=== PATIENT | male | born 1945 | race Caucasian/White ===

== ENCOUNTER 2018-02-10 16:34 | Inpatient (IN) ==
[2018-02-10] MEDS ORDERED: SODIUM CHLORIDE 0.9% 500 ML IV STA (17:03)
[2018-02-10] MEDS ORDERED: methylPREDNISolone SOD SUC 125 MG/2 ML VIAL IV STA (17:05)
[2018-02-10] MEDS ORDERED: ALBUTEROL NEB SOLN 5 MG/ML 20 ML/BOTTLE RESP TX SCH (17:30)
[2018-02-10 17:45] LABS: ABG Base Excess 21.3 MMOL/L (-2.5-2.5); ABG HCO3 45.9 MMOL/L (20-26); ABG Oxygen Saturation 99.7 % (95-100); ABG TCO2 53.1 MMOL/L (23-27)
[2018-02-10 17:50] LABS: ABG PH 7.161 (7.35-7.45)
[2018-02-10] MEDS ORDERED: cefTRIAXone 1,000 MG in SODIUM CHLORIDE 0.9% 100 ML IV STA (17:52)
[2018-02-10 18:42] LABS: Basophils # 0.1 10*3/uL (0.0-0.2); Basophils % 0.6 % (0.0-0.8); Eosinophils % 0.4 % (0.00-10.9); Hematocrit 33.4 VOL% (42.0-52.0); Immature Granulocytes % 0.2 %; Immature Granulocytes Absolute 0.02 #; Lymphocytes # 1.4 10*3/uL (1.4-4.0); Lymphocytes % 16.7 % (21.2-54.2); Mean Corpuscular Hemoglobin 31 PG (27-34); Mean Corpuscular Volume 108.1 FL (87-102); Mean Platelet Volume 10.4 FL (9.6-12.0); Monocytes # 0.4 10*3/uL (0.11-0.8); Monocytes % 5.3 % (1.7-12.7); Neutrophils # 6.4 10*3/uL (1.4-7.4); Neutrophils % 76.8 % (38.7-73.9); Platelet Count 204 T/CUMM (130-400); Red Blood Count 3.09 MC/CUMM (3.8-5.5); Red Cell Distribution Width 14.4 % (9.3-17.3); White Blood Count 8.3 T/CUMM (4-12)
[2018-02-10 18:44] LABS: PT Patient Result 10.1 SECS
[2018-02-10 18:57] LABS: Apearance,Urine CLEAR (Clear); Bacteria,Urine Occasional /HPF (Few); Bilirubin,Urine Negative (Negative); Blood, Urine Negative (Negative); Glucose,Urine (UA) Negative (Negative); Ketones,Urine Negative (Negative); Mucus,Urine Occasional /LPF (Occasional); Nitrite,Urine Negative (Negative); Protein,Urine Negative; RBC,Urine 3 /HPF (0-4); Urine Color Yellow (Yellow); Urine Urobilinogen < 2.0 EU/DL (0.2-1.0); WBC,Urine 17 /HPF (0-6)
[2018-02-10 19:00] LABS: Barbiturates Screen,Urine Negative (Negative); Benzodiazepines Screen,Urine Negative (Negative); Cannabinoid Screen,Urine Negative (Negative); Opiate Screen,Urine Negative (Negative); Phencyclidine Screen,Urine Negative (Negative)
[2018-02-10 19:00] LABS: Ammonia 58 UMOL/L (11-32)
[2018-02-10 19:22] LABS: Hemoglobin 9.7 GM/DL (14.0-18.0)
[2018-02-10 19:24] LABS: Alanine Aminotransferase 18 U/L (16-61); Albumin 2.9 G/DL (3.4-5.0); Alkaline Phosphatase 70 U/L (45-117); Aspartate Amino Transferase 15 U/L (0-37); Blood Urea Nitrogen 16 MG/DL (7-18); Calcium 9.1 MG/DL (8.5-10.1); Glucose 95 MG/DL (74-106); Osmolality,Calculated 283.1 MOS/KG (273-304); Potassium 3.6 MMOL/L (3.5-5.1); Sodium 142 MMOL/L (136-145); Thyroid Stimulating Hormone 0.311 uIU/ml (0.358-3.74); Total Protein 6.4 G/DL (6.4-8.3); Troponin I < 0.015 NG/ML (0.00-0.045)
[2018-02-10] MEDS ORDERED: ACETAMINOPHEN 325 MG TABLET PO PRN (20:24)
[2018-02-10] MEDS ORDERED: ALBUTEROL 2.5 MG/3 ML NEB RESP TX PRN (20:24)
[2018-02-10] MEDS ORDERED: ONDANSETRON 4 MG/2 ML VIAL IV PRN (20:24)
[2018-02-10] MEDS ORDERED: VANCOMYCIN INJ 500 MG in SODIUM CHLORIDE 0.9% 250 ML IV SCH (21:00)
[2018-02-10 21:21] LABS: Anisocytosis 1+; Hypochromasia 1+
[2018-02-10 21:23] LABS: Stomatocytes Few
[2018-02-10 21:24] LABS: Basophilic Stippling Few
[2018-02-10] MEDS: PANTOPRAZOLE 40 MG VIAL IV SCH (22:24)
[2018-02-10] MEDS: LEVOFLOXACIN INJ 750 MG in PREMIX 1 EACH IV SCH (23:23)
[2018-02-10] MEDS: PIPERACILLIN/TAZOBACTAM 3,375 MG in SODIUM CHLORIDE 0.9% 100 ML IV SCH (23:24)
[2018-02-11] MEDS: VANCOMYCIN INJ 500 MG in SODIUM CHLORIDE 0.9% 100 ML IV SCH ×3 (00:11→23:45)
[2018-02-11] MEDS: ALBUTEROL/IPRATROPIUM 3 ML NEB RESP TX SCH ×4 (02:27→19:50)
[2018-02-11] MEDS: methylPREDNISolone SOD SUC 40 MG/1 ML VIAL IV SCH ×4 (02:44→21:06)
[2018-02-11 04:15] LABS: Basophils % 0.1 % (0.0-0.8); Hematocrit 31.1 VOL% (42.0-52.0); Hemoglobin 9.1 GM/DL (14.0-18.0); Immature Granulocytes % 0.7 %; Immature Granulocytes Absolute 0.06 #; Lymphocytes # 0.3 10*3/uL (1.4-4.0); Lymphocytes % 3.6 % (21.2-54.2); Mean Corpuscular HGB Conc 29.3 GM/DL (32-36); Mean Corpuscular Hemoglobin 31 PG (27-34); Mean Corpuscular Volume 106.5 FL (87-102); Mean Platelet Volume 10.7 FL (9.6-12.0); Monocytes # 0.2 10*3/uL (0.11-0.8); Monocytes % 1.8 % (1.7-12.7); Neutrophils % 93.8 % (38.7-73.9); Platelet Count 178 T/CUMM (130-400); Red Blood Count 2.92 MC/CUMM (3.8-5.5); Red Cell Distribution Width 14.2 % (9.3-17.3); White Blood Count 8.5 T/CUMM (4-12)
[2018-02-11 04:32] LABS: ABG Base Excess 19.4 MMOL/L (-2.5-2.5); ABG HCO3 43.7 MMOL/L (20-26); ABG PCO2 98.6 MM HG (35-48); ABG PH 7.313 (7.35-7.45); ABG PO2 85.1 MM HG (80-95); ABG TCO2 46.4 MMOL/L (23-27); Allen Test Positive
[2018-02-11 04:49] LABS: Hypochromasia 1+; Lymphocytes 4 % (20-55); Segmented Neutrophils 95 % (50-85); Stomatocytes Slight; Total Cells Counted 100
[2018-02-11 04:50] LABS: Macrocytosis Slight; Platelet Estimate Adequate
[2018-02-11 04:59] LABS: Ammonia < 10 UMOL/L (11-32)
[2018-02-11] MEDS: PIPERACILLIN/TAZOBACTAM 3,375 MG in SODIUM CHLORIDE 0.9% 100 ML IV SCH ×3 (06:23→21:32)
[2018-02-11 06:33] LABS: Blood Urea Nitrogen 20 MG/DL (7-18); Calcium 8.7 MG/DL (8.5-10.1); Glucose 119 MG/DL (74-106); Potassium 4.1 MMOL/L (3.5-5.1); Sodium 143 MMOL/L (136-145)
[2018-02-11] MEDS: THEOPHYLLINE ER (24 HR) 400 MG TABLET PO SCH (08:56)
[2018-02-11] MEDS: ASPIRIN EC 81 MG TABLET PO SCH (08:56)
[2018-02-11] MEDS: MAGNESIUM CHLORIDE 64 MG TABLET PO SCH (08:56)
[2018-02-11] MEDS: ENOXAPARIN 40 MG/0.4 ML SYRINGE SUBCUT SCH (09:08)
[2018-02-11] MEDS: PANTOPRAZOLE 40 MG VIAL IV SCH (21:06)
[2018-02-11] MEDS: LEVOFLOXACIN INJ 750 MG in PREMIX 1 EACH IV SCH (21:32)
[2018-02-12] MEDS: ALBUTEROL/IPRATROPIUM 3 ML NEB RESP TX SCH ×4 (01:00→19:40)
[2018-02-12] MEDS: methylPREDNISolone SOD SUC 40 MG/1 ML VIAL IV SCH ×4 (03:15→19:00)
[2018-02-12 04:10] LABS: ABG Base Excess 23.2 MMOL/L (-2.5-2.5); ABG HCO3 51.4 MMOL/L (20-26); ABG Oxygen Saturation 96.9 % (95-100); ABG PH 7.408 (7.35-7.45); ABG PO2 96.8 MM HG (80-95)
[2018-02-12 04:11] LABS: ABG PCO2 83.4 MM HG (35-48)
[2018-02-12 04:55] LABS: Basophils % 0.2 % (0.0-0.8); Hemoglobin 8.5 GM/DL (14.0-18.0); Immature Granulocytes % 0.6 %; Immature Granulocytes Absolute 0.06 #; Lymphocytes # 0.7 10*3/uL (1.4-4.0); Lymphocytes % 7.2 % (21.2-54.2); Mean Corpuscular HGB Conc 29.3 GM/DL (32-36); Mean Corpuscular Hemoglobin 31 PG (27-34); Mean Corpuscular Volume 104.3 FL (87-102); Mean Platelet Volume 10.8 FL (9.6-12.0); Monocytes # 0.4 10*3/uL (0.11-0.8); Monocytes % 3.9 % (1.7-12.7); Neutrophils # 8.3 10*3/uL (1.4-7.4); Neutrophils % 88.1 % (38.7-73.9); Platelet Count 202 T/CUMM (130-400); Red Blood Count 2.78 MC/CUMM (3.8-5.5); Red Cell Distribution Width 14.7 % (9.3-17.3); White Blood Count 9.4 T/CUMM (4-12)
[2018-02-12] MEDS: PIPERACILLIN/TAZOBACTAM 3,375 MG in SODIUM CHLORIDE 0.9% 100 ML IV SCH ×3 (05:44→23:34)
[2018-02-12 06:14] LABS: Blood Urea Nitrogen 21 MG/DL (7-18); Calcium 9.2 MG/DL (8.5-10.1); Glucose 109 MG/DL (74-106); Osmolality,Calculated 289.8 MOS/KG (273-304); Sodium 144 MMOL/L (136-145)
[2018-02-12] MEDS: DEXTROSE 5% NACL 0.45% 1,000 ML IV SCH (09:20)
[2018-02-12] MEDS: ENOXAPARIN 40 MG/0.4 ML SYRINGE SUBCUT SCH (10:43)
[2018-02-12] MEDS: ASPIRIN EC 81 MG TABLET PO SCH (10:44)
[2018-02-12] MEDS: THEOPHYLLINE ER (24 HR) 400 MG TABLET PO SCH (10:44)
[2018-02-12] MEDS: MAGNESIUM CHLORIDE 64 MG TABLET PO SCH (10:44)
[2018-02-12] MEDS: fentaNYL 25 MCG/HR PATCH TRANSDERM SCH (11:30)
[2018-02-12] MEDS: VANCOMYCIN INJ 500 MG in SODIUM CHLORIDE 0.9% 100 ML IV SCH ×2 (12:15→19:56)
[2018-02-12] MEDS: PANTOPRAZOLE 40 MG VIAL IV SCH (19:53)
[2018-02-12] MEDS: LEVOFLOXACIN INJ 750 MG in PREMIX 1 EACH IV SCH (21:30)
[2018-02-13] MEDS: ALBUTEROL/IPRATROPIUM 3 ML NEB RESP TX SCH ×4 (01:30→19:59)
[2018-02-13] MEDS: methylPREDNISolone SOD SUC 40 MG/1 ML VIAL IV SCH ×3 (03:15→21:45)
[2018-02-13] MEDS: VANCOMYCIN INJ 500 MG in SODIUM CHLORIDE 0.9% 100 ML IV SCH ×3 (03:26→21:50)
[2018-02-13] MEDS: DEXTROSE 5% NACL 0.45% 1,000 ML IV SCH ×2 (05:28)
[2018-02-13] MEDS: PIPERACILLIN/TAZOBACTAM 3,375 MG in SODIUM CHLORIDE 0.9% 100 ML IV SCH ×2 (06:11→14:31)
[2018-02-13] MEDS: MAGNESIUM CHLORIDE 64 MG TABLET PO SCH (08:43)
[2018-02-13] MEDS: THEOPHYLLINE ER (24 HR) 400 MG TABLET PO SCH (08:45)
[2018-02-13] MEDS: ASPIRIN EC 81 MG TABLET PO SCH (08:45)
[2018-02-13] MEDS: ENOXAPARIN 40 MG/0.4 ML SYRINGE SUBCUT SCH (08:46)
[2018-02-13] MEDS: fentaNYL 25 MCG/HR PATCH TRANSDERM SCH (10:40)
[2018-02-13] MEDS: PANTOPRAZOLE 40 MG VIAL IV SCH (21:46)
[2018-02-13] MEDS: LEVOFLOXACIN INJ 750 MG in PREMIX 1 EACH IV SCH (23:16)
[2018-02-14] MEDS: ALBUTEROL/IPRATROPIUM 3 ML NEB RESP TX SCH ×4 (01:15→19:06)
[2018-02-14] MEDS: PIPERACILLIN/TAZOBACTAM 3,375 MG in SODIUM CHLORIDE 0.9% 100 ML IV SCH (02:29)
[2018-02-14] MEDS: DEXTROSE 5% NACL 0.45% 1,000 ML IV SCH (02:29)
[2018-02-14 07:55] LABS: Calcium 8.9 MG/DL (8.5-10.1); Osmolality,Calculated 287.8 MOS/KG (273-304); Potassium 3.6 MMOL/L (3.5-5.1)
[2018-02-14] MEDS: VANCOMYCIN INJ 500 MG in SODIUM CHLORIDE 0.9% 100 ML IV SCH (09:10)
[2018-02-14] MEDS: methylPREDNISolone SOD SUC 40 MG/1 ML VIAL IV SCH (09:12)
[2018-02-14] MEDS: ASPIRIN EC 81 MG TABLET PO SCH (09:22)
[2018-02-14] MEDS: MAGNESIUM CHLORIDE 64 MG TABLET PO SCH (09:22)
[2018-02-14] MEDS: THEOPHYLLINE ER (24 HR) 400 MG TABLET PO SCH (09:23)
[2018-02-14] MEDS: ENOXAPARIN 40 MG/0.4 ML SYRINGE SUBCUT SCH (09:23)
[2018-02-14] MEDS ORDERED: SKIN HEALING OINT (AQUAPHOR) 50 GM TUBE TOP PRN (11:53)
[2018-02-14] MEDS: AMOXICILLIN/CLAV 500 MG TABLET PO SCH (22:02)
[2018-02-14] MEDS: PANTOPRAZOLE 40 MG VIAL IV SCH (22:02)
[2018-02-15] MEDS: ALBUTEROL/IPRATROPIUM 3 ML NEB RESP TX SCH ×4 (00:18→19:13)
[2018-02-15 06:25] LABS: Basophils % 0.2 % (0.0-0.8); Eosinophils % 0.5 % (0.00-10.9); Hemoglobin 9.2 GM/DL (14.0-18.0); Immature Granulocytes % 0.5 %; Immature Granulocytes Absolute 0.04 #; Lymphocytes # 1.9 10*3/uL (1.4-4.0); Mean Corpuscular HGB Conc 28.1 GM/DL (32-36); Mean Corpuscular Hemoglobin 32 PG (27-34); Mean Corpuscular Volume 112.8 FL (87-102); Mean Platelet Volume 10.5 FL (9.6-12.0); Monocytes # 0.5 10*3/uL (0.11-0.8); Monocytes % 6.2 % (1.7-12.7); Neutrophils # 5.8 10*3/uL (1.4-7.4); Neutrophils % 69.6 % (38.7-73.9); Platelet Count 125 T/CUMM (130-400); Red Cell Distribution Width 14.9 % (9.3-17.3); White Blood Count 8.4 T/CUMM (4-12)
[2018-02-15 06:29] LABS: Osmolality,Calculated 278.4 MOS/KG (273-304); Potassium 3.2 MMOL/L (3.5-5.1)
[2018-02-15 06:58] LABS: Folate 17.9 NG/ML (5.4-24.0)
[2018-02-15 07:10] LABS: Platelet Estimate Adequate
[2018-02-15 07:11] LABS: Anisocytosis Slight
[2018-02-15] MEDS: fentaNYL 25 MCG/HR PATCH TRANSDERM SCH ×2 (09:42→09:54)
[2018-02-15] MEDS: predniSONE 20 MG TABLET PO SCH (09:46)
[2018-02-15] MEDS: MAGNESIUM CHLORIDE 64 MG TABLET PO SCH (09:46)
[2018-02-15] MEDS: ENOXAPARIN 40 MG/0.4 ML SYRINGE SUBCUT SCH (09:46)
[2018-02-15] MEDS: AMOXICILLIN/CLAV 500 MG TABLET PO SCH (09:46)
[2018-02-15] MEDS: ASPIRIN EC 81 MG TABLET PO SCH (09:46)
[2018-02-15] MEDS: THEOPHYLLINE ER (24 HR) 400 MG TABLET PO SCH (09:46)
[2018-02-16] MEDS: ALBUTEROL/IPRATROPIUM 3 ML NEB RESP TX SCH ×4 (00:26→19:19)
[2018-02-16] MEDS: AMOXICILLIN/CLAV 500 MG TABLET PO SCH ×3 (02:59→21:35)
[2018-02-16] MEDS: PANTOPRAZOLE 40 MG VIAL IV SCH ×2 (02:59→21:35)
[2018-02-16 07:27] LABS: Calcium 8.4 MG/DL (8.5-10.1); Potassium 3.2 MMOL/L (3.5-5.1)
[2018-02-16] MEDS: ENOXAPARIN 40 MG/0.4 ML SYRINGE SUBCUT SCH (09:36)
[2018-02-16] MEDS: MAGNESIUM CHLORIDE 64 MG TABLET PO SCH (09:36)
[2018-02-16] MEDS: ASPIRIN EC 81 MG TABLET PO SCH (09:36)
[2018-02-16] MEDS: THEOPHYLLINE ER (24 HR) 400 MG TABLET PO SCH (09:36)
[2018-02-16] MEDS: predniSONE 20 MG TABLET PO SCH (09:36)
[2018-02-17] MEDS: ALBUTEROL/IPRATROPIUM 3 ML NEB RESP TX SCH ×2 (01:21→08:01)
[2018-02-17] MEDS ORDERED: POTASSIUM CHLORIDE 20 MEQ TABLET PO ONE (10:25)
[2018-02-17] MEDS: MAGNESIUM CHLORIDE 64 MG TABLET PO SCH (10:40)
[2018-02-17] MEDS: AMOXICILLIN/CLAV 500 MG TABLET PO SCH (10:41)
[2018-02-17] MEDS: predniSONE 20 MG TABLET PO SCH (10:42)
[2018-02-17] MEDS: ASPIRIN EC 81 MG TABLET PO SCH (10:42)
[2018-02-17] MEDS: THEOPHYLLINE ER (24 HR) 400 MG TABLET PO SCH (10:42)
[2018-02-17] MEDS: ENOXAPARIN 40 MG/0.4 ML SYRINGE SUBCUT SCH (11:00)
[2018-02-17 14:39] VITALS: BP 126/72
== END 2018-02-17 12:15 | disposition home health service (06) | DRG 177 ==
LOC: EDBD → EDUNIT# → N.ED 16:34 → N.EDINP 20:19 → SUATTDRO 20:19 → N.CC 22:01 → N.5E 02-13 19:12
PROVIDERS: ADMIT Internal Medicine

== ENCOUNTER 2018-02-27 01:57 | Inpatient (IN) ==
[2018-02-27] MEDS ORDERED: VANCOMYCIN INJ 1,000 MG in SODIUM CHLORIDE 0.9% 250 ML IV STA ×2 (02:09→02:19)
[2018-02-27] MEDS ORDERED: PIPERACILLIN/TAZOBACTAM 3,375 MG in SODIUM CHLORIDE 0.9% 100 ML IV STA ×2 (02:09→02:18)
[2018-02-27] MEDS ORDERED: ALBUTEROL/IPRATROPIUM 3 ML NEB RESP TX STA (02:11)
[2018-02-27] MEDS ORDERED: methylPREDNISolone SOD SUC 125 MG/2 ML VIAL IV STA (02:11)
[2018-02-27 03:16] LABS: VBG Base Excess 15.4 MEQ/L (0-4); VBG PCO2 112.2 MMHG (41-51); VBG PH 7.24; VBG PO2 91.7 MMHG (17-40)
[2018-02-27 03:21] LABS: Basophils % 0.3 % (0.0-0.8); Eosinophils % 0.2 % (0.00-10.9); Hematocrit 33.3 VOL% (42.0-52.0); Hemoglobin 9.8 GM/DL (14.0-18.0); Immature Granulocytes % 0.5 %; Immature Granulocytes Absolute 0.05 #; Lymphocytes # 0.8 10*3/uL (1.4-4.0); Lymphocytes % 7.7 % (21.2-54.2); Mean Corpuscular HGB Conc 29.4 GM/DL (32-36); Mean Corpuscular Hemoglobin 31 PG (27-34); Monocytes # 0.5 10*3/uL (0.11-0.8); Neutrophils # 9.2 10*3/uL (1.4-7.4); Neutrophils % 86.3 % (38.7-73.9); Platelet Count 326 T/CUMM (130-400); Red Blood Count 3.17 MC/CUMM (3.8-5.5); Red Cell Distribution Width 14.6 % (9.3-17.3); White Blood Count 10.6 T/CUMM (4-12)
[2018-02-27] MEDS ORDERED: SODIUM CHLORIDE 0.9% 1,000 ML IV STA (03:21)
[2018-02-27 03:54] LABS: Bilirubin,Total 0.4 MG/DL (0.2-1.0); Calcium 8.6 MG/DL (8.5-10.1); Osmolality,Calculated 277.7 MOS/KG (273-304); Total Protein 6.2 G/DL (6.4-8.3)
[2018-02-27 04:14] LABS: Apearance,Urine Slightly Hazy (Clear); Bacteria,Urine Occasional /HPF (Few); Bilirubin,Urine Negative (Negative); Blood, Urine Negative (Negative); Glucose,Urine (UA) Negative (Negative); Granular Casts,Urine 1 /LPF (0-1); Hyaline Casts,Urine 3 /LPF (0-3); Ketones,Urine Negative (Negative); Mucus,Urine Occasional /LPF (Occasional); Nitrite,Urine Negative (Negative); Protein,Urine 30 MG/DL; RBC,Urine 4 /HPF (0-4); Squamous Epithelial Cell,Urine Occasional /HPF (0-10); Urine Color Yellow (Yellow); Urine Specific Gravity 1.011 (1.001-1.035); Urine Urobilinogen < 2.0 EU/DL (0.2-1.0); WBC,Urine 241 /HPF (0-6)
[2018-02-27] MEDS ORDERED: ONDANSETRON 4 MG/2 ML VIAL IV PRN (05:29)
[2018-02-27] MEDS ORDERED: ALBUTEROL 2.5 MG/3 ML NEB RESP TX PRN (05:34)
[2018-02-27] MEDS ORDERED: MEROPENEM 1,000 MG in SODIUM CHLORIDE 0.9% 100 ML IV SCH (06:00)
[2018-02-27] MEDS ORDERED: INFLUENZA VIRUS VACCINE 0.5 ML SYRINGE IM ONE (07:02)
[2018-02-27] MEDS: SODIUM CHLORIDE 0.9% 1,000 ML IV SCH (07:02)
[2018-02-27] MEDS ORDERED: PNEUMOCOCCAL VACCINE (13 VALENT) 0.5 ML SYRINGE IM ONE (07:07)
[2018-02-27] MEDS: ALBUTEROL/IPRATROPIUM 3 ML NEB RESP TX SCH ×3 (07:20→19:21)
[2018-02-27] MEDS: methylPREDNISolone SOD SUC 40 MG/1 ML VIAL IV SCH ×3 (09:28→20:41)
[2018-02-27] MEDS: ENOXAPARIN 40 MG/0.4 ML SYRINGE SUBCUT SCH (09:30)
[2018-02-27] MEDS: MAGNESIUM CHLORIDE 64 MG TABLET PO SCH (09:33)
[2018-02-27] MEDS: THEOPHYLLINE ER (24 HR) 400 MG TABLET PO SCH (09:33)
[2018-02-27] MEDS: ASPIRIN EC 81 MG TABLET PO SCH (09:33)
[2018-02-27] MEDS ORDERED: MAGNESIUM SULF RIDER 4 GM in PREMIX 1 EACH IV ONE (10:07)
[2018-02-27] MEDS ORDERED: MAGNESIUM SULF RIDER 4 GM in PREMIX 1 EACH IV PRN (11:01)
[2018-02-27] MEDS: MAGNESIUM SULF RIDER 2 GM in PREMIX 1 EACH IV PRN ×2 (11:23→14:52)
[2018-02-27] MEDS: PIPERACILLIN/TAZOBACTAM 3,375 MG in SODIUM CHLORIDE 0.9% 100 ML IV SCH ×2 (12:45→20:44)
[2018-02-27 14:34] LABS: ABG HCO3 32.6 MMOL/L (20-26); ABG Oxygen Saturation 87.9 % (95-100); ABG PH 7.248 (7.35-7.45); ABG PO2 60.1 MM HG (80-95); ABG TCO2 36.9 MMOL/L (23-27)
[2018-02-27 15:07] LABS: ABG PCO2 90.8 MM HG (35-48)
[2018-02-27 16:38] LABS: Apearance,Urine CLOUDY (Clear); Bilirubin,Urine Negative (Negative); Blood, Urine Small mg/dL (Negative); Glucose,Urine (UA) Negative (Negative); Ketones,Urine 5 mg/dL (Negative); Mucus,Urine Occasional /LPF (Occasional); Nitrite,Urine Negative (Negative); Protein,Urine 30 MG/DL; RBC,Urine 104 /HPF (0-4); Urine Color Yellow (Yellow); Urine Specific Gravity 1.015 (1.001-1.035); Urine Urobilinogen < 2.0 EU/DL (0.2-1.0); WBC,Urine 2156 /HPF (0-6)
[2018-02-28] MEDS: ALBUTEROL/IPRATROPIUM 3 ML NEB RESP TX SCH ×4 (00:51→19:45)
[2018-02-28 03:24] LABS: Basophils % 0.1 % (0.0-0.8); Hematocrit 29.9 VOL% (42.0-52.0); Hemoglobin 8.8 GM/DL (14.0-18.0); Immature Granulocytes % 0.5 %; Immature Granulocytes Absolute 0.04 #; Lymphocytes # 0.5 10*3/uL (1.4-4.0); Lymphocytes % 6.5 % (21.2-54.2); Mean Corpuscular HGB Conc 29.4 GM/DL (32-36); Mean Corpuscular Hemoglobin 30 PG (27-34); Mean Corpuscular Volume 103.5 FL (87-102); Mean Platelet Volume 10.3 FL (9.6-12.0); Monocytes # 0.3 10*3/uL (0.11-0.8); Monocytes % 3.5 % (1.7-12.7); Neutrophils # 7.4 10*3/uL (1.4-7.4); Neutrophils % 89.4 % (38.7-73.9); Platelet Count 326 T/CUMM (130-400); Red Blood Count 2.89 MC/CUMM (3.8-5.5); Red Cell Distribution Width 14.8 % (9.3-17.3); White Blood Count 8.3 T/CUMM (4-12)
[2018-02-28] MEDS: methylPREDNISolone SOD SUC 40 MG/1 ML VIAL IV SCH ×4 (03:29→20:43)
[2018-02-28] MEDS ORDERED: MORPHINE 4 MG/1 ML VIAL IV ONE (03:30)
[2018-02-28] MEDS: PIPERACILLIN/TAZOBACTAM 3,375 MG in SODIUM CHLORIDE 0.9% 100 ML IV SCH ×3 (03:31→18:27)
[2018-02-28 04:05] LABS: Calcium 8.4 MG/DL (8.5-10.1); Osmolality,Calculated 282.4 MOS/KG (273-304); Potassium 4.7 MMOL/L (3.5-5.1)
[2018-02-28] MEDS: ASPIRIN EC 81 MG TABLET PO SCH ×2 (09:04→10:40)
[2018-02-28] MEDS: THEOPHYLLINE ER (24 HR) 400 MG TABLET PO SCH ×2 (09:04→10:40)
[2018-02-28] MEDS: ENOXAPARIN 40 MG/0.4 ML SYRINGE SUBCUT SCH (09:04)
[2018-02-28] MEDS: MAGNESIUM CHLORIDE 64 MG TABLET PO SCH ×2 (09:04→10:40)
[2018-02-28] MEDS: SODIUM CHLORIDE 0.9% 1,000 ML IV SCH (17:33)
[2018-03-01] MEDS: ALBUTEROL/IPRATROPIUM 3 ML NEB RESP TX SCH ×4 (00:42→19:32)
[2018-03-01] MEDS: methylPREDNISolone SOD SUC 40 MG/1 ML VIAL IV SCH ×4 (01:59→22:24)
[2018-03-01] MEDS: PIPERACILLIN/TAZOBACTAM 3,375 MG in SODIUM CHLORIDE 0.9% 100 ML IV SCH ×3 (02:05→18:15)
[2018-03-01] MEDS: THEOPHYLLINE ER (24 HR) 400 MG TABLET PO SCH (08:32)
[2018-03-01] MEDS: MAGNESIUM CHLORIDE 64 MG TABLET PO SCH (08:33)
[2018-03-01] MEDS: ASPIRIN EC 81 MG TABLET PO SCH (08:33)
[2018-03-01] MEDS: ENOXAPARIN 40 MG/0.4 ML SYRINGE SUBCUT SCH (08:33)
[2018-03-02] MEDS: ALBUTEROL/IPRATROPIUM 3 ML NEB RESP TX SCH ×4 (01:33→19:15)
[2018-03-02] MEDS: methylPREDNISolone SOD SUC 40 MG/1 ML VIAL IV SCH ×4 (05:15→21:40)
[2018-03-02] MEDS: SODIUM CHLORIDE 0.9% 1,000 ML IV SCH ×2 (05:15→10:51)
[2018-03-02] MEDS: PIPERACILLIN/TAZOBACTAM 3,375 MG in SODIUM CHLORIDE 0.9% 100 ML IV SCH ×3 (05:18→18:00)
[2018-03-02] MEDS: ASPIRIN EC 81 MG TABLET PO SCH (08:39)
[2018-03-02] MEDS: THEOPHYLLINE ER (24 HR) 400 MG TABLET PO SCH (08:39)
[2018-03-02] MEDS: ENOXAPARIN 40 MG/0.4 ML SYRINGE SUBCUT SCH (08:40)
[2018-03-02] MEDS: MAGNESIUM CHLORIDE 64 MG TABLET PO SCH (08:40)
[2018-03-02 09:33] LABS: Basophils % 0.1 % (0.0-0.8); Hematocrit 30.3 VOL% (42.0-52.0); Hemoglobin 8.9 GM/DL (14.0-18.0); Immature Granulocytes % 0.5 %; Immature Granulocytes Absolute 0.06 #; Lymphocytes # 0.5 10*3/uL (1.4-4.0); Lymphocytes % 4.6 % (21.2-54.2); Mean Corpuscular HGB Conc 29.4 GM/DL (32-36); Mean Corpuscular Hemoglobin 31 PG (27-34); Mean Corpuscular Volume 104.5 FL (87-102); Mean Platelet Volume 10.4 FL (9.6-12.0); Monocytes # 0.4 10*3/uL (0.11-0.8); Monocytes % 3.1 % (1.7-12.7); Neutrophils # 10.4 10*3/uL (1.4-7.4); Neutrophils % 91.7 % (38.7-73.9); Platelet Count 237 T/CUMM (130-400); White Blood Count 11.4 T/CUMM (4-12)
[2018-03-02 09:43] LABS: Calcium 8.7 MG/DL (8.5-10.1); Osmolality,Calculated 285.1 MOS/KG (273-304); Potassium 4.2 MMOL/L (3.5-5.1)
[2018-03-02] MEDS ORDERED: FLUCONAZOLE INJ 200 MG in PREMIX 1 EACH IV SCH (11:00)
[2018-03-02 11:47] LABS: Anisocytosis 1+; Lymphocytes 5 % (20-55); Ovalocytes Few; Segmented Neutrophils 89 % (50-85); Total Cells Counted 100
[2018-03-02 11:48] LABS: Hypochromasia 2+; Platelet Estimate Normal; Stomatocytes Few
[2018-03-02] MEDS: FLUCONAZOLE INJ 200 MG in PREMIX 1 EACH IV SCH (15:15)
[2018-03-03] MEDS: ALBUTEROL/IPRATROPIUM 3 ML NEB RESP TX SCH ×4 (00:53→19:48)
[2018-03-03] MEDS: methylPREDNISolone SOD SUC 40 MG/1 ML VIAL IV SCH ×4 (04:05→21:04)
[2018-03-03] MEDS: PIPERACILLIN/TAZOBACTAM 3,375 MG in SODIUM CHLORIDE 0.9% 100 ML IV SCH ×3 (04:13→18:15)
[2018-03-03 05:37] LABS: Hematocrit 36.2 VOL% (42.0-52.0); Immature Granulocytes % 0.6 %; Immature Granulocytes Absolute 0.07 #; Lymphocytes # 0.6 10*3/uL (1.4-4.0); Lymphocytes % 4.9 % (21.2-54.2); Mean Corpuscular HGB Conc 28.5 GM/DL (32-36); Mean Corpuscular Hemoglobin 31 PG (27-34); Mean Corpuscular Volume 107.1 FL (87-102); Mean Platelet Volume 10.4 FL (9.6-12.0); Monocytes # 0.3 10*3/uL (0.11-0.8); Monocytes % 2.7 % (1.7-12.7); Neutrophils # 10.7 10*3/uL (1.4-7.4); Neutrophils % 91.8 % (38.7-73.9); Platelet Count 222 T/CUMM (130-400); Red Blood Count 3.38 MC/CUMM (3.8-5.5); Red Cell Distribution Width 14.9 % (9.3-17.3); White Blood Count 11.6 T/CUMM (4-12)
[2018-03-03 05:47] LABS: Hemoglobin 10.6 GM/DL (14.0-18.0)
[2018-03-03 05:51] LABS: Calcium 9.2 MG/DL (8.5-10.1); Osmolality,Calculated 284.3 MOS/KG (273-304); Potassium 3.9 MMOL/L (3.5-5.1)
[2018-03-03 06:28] LABS: Hypochromasia 1+; Lymphocytes 5 % (20-55); Segmented Neutrophils 94 % (50-85); Total Cells Counted 100
[2018-03-03 06:29] LABS: Macrocytosis 1+
[2018-03-03] MEDS ORDERED: MAGNESIUM SULF RIDER 4 GM in PREMIX 1 EACH IV ONE ×2 (07:54→08:30)
[2018-03-03] MEDS ORDERED: FUROSEMIDE 40 MG/4 ML VIAL IV ONE (08:12)
[2018-03-03] MEDS: THEOPHYLLINE ER (24 HR) 400 MG TABLET PO SCH (08:33)
[2018-03-03] MEDS: MAGNESIUM CHLORIDE 64 MG TABLET PO SCH ×2 (08:34→21:05)
[2018-03-03] MEDS: ASPIRIN EC 81 MG TABLET PO SCH (08:34)
[2018-03-03] MEDS: ENOXAPARIN 40 MG/0.4 ML SYRINGE SUBCUT SCH (08:41)
[2018-03-03] MEDS: CYANOCOBALAMIN 1000 MCG/1 ML VIAL IM SCH (11:13)
[2018-03-03] MEDS ORDERED: CARVEDILOL 3.125 MG TABLET PO SCH (14:30)
[2018-03-03] MEDS: NEBIVOLOL 5 MG TABLET PO SCH (16:21)
[2018-03-03] MEDS: CLORAZEPATE 3.75 MG TABLET PO SCH ×2 (16:21→21:05)
[2018-03-03] MEDS: FLUCONAZOLE INJ 200 MG in PREMIX 1 EACH IV SCH (17:08)
[2018-03-03] MEDS: DORNASE ALFA 2.5 MG/2.5 ML VIAL RESP TX SCH (19:48)
[2018-03-03] MEDS: MAGNESIUM SULF RIDER 2 GM in PREMIX 1 EACH IV PRN (23:32)
[2018-03-04] MEDS: ALBUTEROL/IPRATROPIUM 3 ML NEB RESP TX SCH ×4 (00:35→19:17)
[2018-03-04] MEDS: methylPREDNISolone SOD SUC 40 MG/1 ML VIAL IV SCH ×4 (03:11→21:11)
[2018-03-04] MEDS: PIPERACILLIN/TAZOBACTAM 3,375 MG in SODIUM CHLORIDE 0.9% 100 ML IV SCH ×3 (03:14→18:16)
[2018-03-04 06:27] LABS: Basophils % 0.1 % (0.0-0.8); Hematocrit 30.1 VOL% (42.0-52.0); Hemoglobin 8.9 GM/DL (14.0-18.0); Immature Granulocytes % 0.8 %; Immature Granulocytes Absolute 0.07 #; Lymphocytes # 0.4 10*3/uL (1.4-4.0); Lymphocytes % 4.3 % (21.2-54.2); Mean Corpuscular HGB Conc 29.6 GM/DL (32-36); Mean Corpuscular Hemoglobin 31 PG (27-34); Mean Corpuscular Volume 105.2 FL (87-102); Mean Platelet Volume 10.6 FL (9.6-12.0); Monocytes # 0.2 10*3/uL (0.11-0.8); Neutrophils # 8.5 10*3/uL (1.4-7.4); Neutrophils % 92.8 % (38.7-73.9); Platelet Count 182 T/CUMM (130-400); Red Blood Count 2.86 MC/CUMM (3.8-5.5); Red Cell Distribution Width 14.6 % (9.3-17.3); White Blood Count 9.1 T/CUMM (4-12)
[2018-03-04] MEDS ORDERED: SIMETHICONE CHEW 125 MG TABLET PO PRN ×2 (06:35→06:38)
[2018-03-04 06:46] LABS: Albumin 2.5 G/DL (3.4-5.0); Bilirubin,Total 0.7 MG/DL (0.2-1.0); Calcium 8.1 MG/DL (8.5-10.1); Osmolality,Calculated 284.3 MOS/KG (273-304); Potassium 3.4 MMOL/L (3.5-5.1); Total Protein 5.2 G/DL (6.4-8.3)
[2018-03-04 07:02] LABS: Band Neutrophils 2 % (0-10); Lymphocytes 6 % (20-55); Macrocytosis 2+; Nucleated Red Blood Cells 1 (0-5); Platelet Estimate Normal; Segmented Neutrophils 89 % (50-85); Total Cells Counted 100
[2018-03-04] MEDS ORDERED: POTASSIUM CHLORIDE 20 MEQ TABLET PO ONE (07:14)
[2018-03-04] MEDS: DORNASE ALFA 2.5 MG/2.5 ML VIAL RESP TX SCH ×2 (07:26→19:26)
[2018-03-04] MEDS: THEOPHYLLINE ER (24 HR) 400 MG TABLET PO SCH (08:44)
[2018-03-04] MEDS: ASPIRIN EC 81 MG TABLET PO SCH (08:44)
[2018-03-04] MEDS: NEBIVOLOL 5 MG TABLET PO SCH (08:46)
[2018-03-04] MEDS: CLORAZEPATE 3.75 MG TABLET PO SCH ×3 (08:46→21:12)
[2018-03-04] MEDS: CYANOCOBALAMIN 1000 MCG/1 ML VIAL IM SCH (08:50)
[2018-03-04] MEDS: ENOXAPARIN 40 MG/0.4 ML SYRINGE SUBCUT SCH (09:00)
[2018-03-04] MEDS: MAGNESIUM CHLORIDE 64 MG TABLET PO SCH ×2 (09:01→21:12)
[2018-03-04] MEDS: FLUCONAZOLE INJ 200 MG in PREMIX 1 EACH IV SCH (16:34)
[2018-03-04] MEDS ORDERED: ACETAMINOPHEN 325 MG TABLET PO PRN (17:51)
[2018-03-05] MEDS: ALBUTEROL/IPRATROPIUM 3 ML NEB RESP TX SCH ×4 (00:36→19:13)
[2018-03-05] MEDS: methylPREDNISolone SOD SUC 40 MG/1 ML VIAL IV SCH ×3 (03:02→14:04)
[2018-03-05] MEDS: PIPERACILLIN/TAZOBACTAM 3,375 MG in SODIUM CHLORIDE 0.9% 100 ML IV SCH ×3 (03:05→18:07)
[2018-03-05] MEDS: DORNASE ALFA 2.5 MG/2.5 ML VIAL RESP TX SCH ×2 (07:23→19:14)
[2018-03-05] MEDS ORDERED: LIDOCAINE 2% 20 ML VIAL RESP TX ONE (07:38)
[2018-03-05] MEDS ORDERED: MIDAZOLAM 10 MG/2 ML VIAL IV ONE (07:38)
[2018-03-05] MEDS ORDERED: LIDOCAINE 1% 20 ML VIAL MISC INJ ONE (07:38)
[2018-03-05] MEDS: ENOXAPARIN 40 MG/0.4 ML SYRINGE SUBCUT SCH (08:36)
[2018-03-05] MEDS: NEBIVOLOL 5 MG TABLET PO SCH (08:36)
[2018-03-05] MEDS: THEOPHYLLINE ER (24 HR) 400 MG TABLET PO SCH (08:36)
[2018-03-05] MEDS: ASPIRIN EC 81 MG TABLET PO SCH (08:36)
[2018-03-05] MEDS: MAGNESIUM CHLORIDE 64 MG TABLET PO SCH (08:36)
[2018-03-05] MEDS: CLORAZEPATE 3.75 MG TABLET PO SCH ×2 (08:36→14:04)
[2018-03-05 10:01] LABS: Lymphocytes,Pleural Fluid 22 %; Monocytes,Pleural Fluid 2 %; Neutrophils,Pleural Fluid 76 %; RBC,Pleural Fluid 671 T/CUMM
[2018-03-05 13:05] LABS: ABG Base Excess 17.6 MMOL/L (-2.5-2.5); ABG HCO3 41.8 MMOL/L (20-26); ABG Oxygen Saturation 98.8 % (95-100); ABG TCO2 48.3 MMOL/L (23-27)
[2018-03-05 13:10] LABS: ABG PH 7.193 (7.35-7.45)
[2018-03-05 14:57] LABS: ABG Base Excess 13.4 MMOL/L (-2.5-2.5); ABG Oxygen Saturation 86.8 % (95-100); ABG PH 7.244 (7.35-7.45); ABG PO2 56.4 MM HG (80-95); ABG TCO2 41.9 MMOL/L (23-27)
[2018-03-05] MEDS: FLUCONAZOLE INJ 200 MG in PREMIX 1 EACH IV SCH (16:30)
[2018-03-05 22:32] VITALS: BP 118/71
== END 2018-03-05 21:06 | disposition expired | DRG 189 ==
LOC: EDUNIT# → EDBD → N.ED 01:57 → N.EDINP 05:23 → SUATTDRO 05:23 → N.5E 06:03
PROVIDERS: ADMIT Internal Medicine; ATTEND Hospitalist